=== PATIENT | female | born 1965 | race Caucasian/White ===

== ENCOUNTER → 2017-05-09 | Outpatient (CLI) | payer BC ==
--- NOTE | 2017-05-09 11:59 | FL ---
Barium swallow HISTORY: K 21.9 Patient was given high density barium to drink. Swallowing mechanism is normal. There is no obstruction to flow or extravasation. Postop changes are noted to the gastroesophageal junction. No intraluminal filling defect evident. No evident gastroesop hageal reflux or hiatal hernia. IMPRESSION: Post fundoplication. 1 minute 19 seconds fluoroscopy time, 12 images obtained
== END | disposition home or self-care (01) ==
LOC: RADFLMAIN 08:43
PROVIDERS: ATTEND Surgery
DX: K21.9 Gastro-esophageal reflux disease without esophagitis (principal); Z98.890 Other specified postprocedural states
CPT/HCPCS: 74220

== ENCOUNTER 2017-05-12 11:39 | Day surgery (SDC) | payer BC, OTHER ==
[~2017-05-12 11:39] MED LIST: LACTATED RINGERS 1,000 ML IV SCH
[2017-05-12 11:57] VITALS: TEMP 98.7
[2017-05-12] MEDS ORDERED: GLYCOPYRROLATE 0.2 MG/ML 2 ML VIAL ONE (13:41)
[2017-05-12] MEDS ORDERED: LIDOCAINE 1% INJ 10MG/ML (20 ML MDV) ONE (13:41)
[2017-05-12] MEDS ORDERED: PROPOFOL 10 MG/ML 20 ML VIAL IV ONE (13:41)
--- NOTE | 2017-05-12 13:45 | P.GSHP ---
History of Present Illness H&P Date: 05/12/17 Chief Complaint: GERD, diarrhea This a 51-year-old female who's had complaints of GERD and diarrhea. Patient presents today for colonoscopy and EGD. Past Medical History Past Medical History: Fibromyalgia, GERD/Reflux, Thyroid Disorder Additional Past Medical History / Comment(s): LUPUS. STATES HX OF STOMACH ULCERS., ENVIRONMENTAL ALLERGIES. , recent sinus infection-now resolved, hiatal hernia History of Any Multi-Drug Resistant Organisms: None Reported Past Surgical History: Cholecystectomy Additional Past Surgical History / Comment(s): JAMES FUNDOPLICATION. EGD, COLONOSCOPY, CATARACTS Past Anesthesia/Blood Transfusion Reactions: No Reported Reaction Past Psychological History: No Psychological Hx Reported Smoking Status: Current some day smoker Past Alcohol Use History: None Reported Additional Past Alcohol Use History / Comment(s): SMOKES 1 PPD. SMOKING SINCE AGE 14., APPROX 36 YEARS Past Drug Use History: None Reported - Past Family History Father Family Medical History: Cancer Medications and Allergies Home Medications Medication Instructions Recorded Confirmed Type DULoxetine HCL [Cymbalta] 30 mg PO QAM 05/08/17 05/08/17 History Levothyroxine Sodium [Synthroid] 125 mcg PO QAM 05/08/17 05/08/17 History traMADol HCL [traMADol HCL ER] 200 mg PO HS 05/08/17 05/08/17 History Methocarbamol [Robaxin-750] 750 mg PO DAILY 05/12/17 05/12/17 History Allergies Allergy/AdvReac Type Severity Reaction Status Date / Time No Known Allergies Allergy Verified 05/12/17 11:52 Surgical - Exam Vital Signs Temp Pulse Resp BP Pulse Ox 98.7 F 80 18 152/73 100 05/12/17 11:56 05/12/17 11:56 05/12/17 11:56 05/12/17 11:56 05/12/17 11:56 - General well developed, no distress - Eyes PERRL - ENT normal pinna - Neck no masses - Respiratory normal expansion - Cardiovascular Rhythm: regular - Abdomen Abdomen: soft, non tender Assessment and Plan Assessment: GERD, diarrhea. We'll perform EGD and colonoscopy.
--- NOTE | 2017-05-12 14:11 | P.OP ---
Date of Procedure: 05/12/17 Preoperative Diagnosis: GERD Diarrhea Postoperative Diagnosis: Mild antral gastritis No evidence of hiatal hernia No evidence of esophagitis Mild diverticulosis Anesthesia: MAC Surgeon: Elkin Mayorga Pathology: other (Antrum) Condition: stable Disposition: PACU Description of Procedure: Patient's placed on the endoscopy table in the lateral position. She received IV sedation. The gastroscope some placed oropharynx and passed into the esophagus and stomach. Scope was then placed through the pylorus. The first second portion of the duodenum appeared normal. The scope was then brought back the antrum and this was mildly inflamed. A biopsies was performed. The scope was then retroflexed and remainder some appeared normal. There is no evidence of any recurrent hiatal hernia. The remainder stomach appeared normal. The GE junction was at 40 cm. The fundoplication wrap appeared to be in the appropriate position. The distal esophagus normal. The proximal esophagus was normal. Scope was withdrawn from the the esophagus. And withdrawn for patient. Next digital rectal exam was performed which revealed no abnormalities. The flexible colonoscope was then placed patient anus passed throughout the entire colon. The ileocecal valve was visualized. The cecum, ascending and transverse colon appeared normal. There is known to any inflammation or erosions of the colon. The scope was then brought back the descending and sigmoid colon and there a few scattered diverticula. Scope was then brought back the rectum was normal. Scope was withdrawn for patient.
[2017-05-12 14:48] VITALS: BP 138/74; PULSE 72; RESP 18
== END 2017-05-12 15:09 | disposition home or self-care (01) ==
LOC: ORWHC2ENDO 11:39
PROVIDERS: ATTEND Surgery
DX: K21.9 Gastro-esophageal reflux disease without esophagitis (principal); K29.50 Unspecified chronic gastritis without bleeding; K57.90 Diverticulosis of intestine, part unspecified, without perforation or abscess without bleeding; M79.7 Fibromyalgia; E07.9 Disorder of thyroid, unspecified; M32.9 Systemic lupus erythematosus, unspecified; F39 Unspecified mood [affective] disorder; Z79.891 Long term (current) use of opiate analgesic; Z79.899 Other long term (current) drug therapy
CPT/HCPCS: 88305; 45378; 43239; J2001; J2704